=== PATIENT | male | born 2000 | race African-American/Black ===

== ENCOUNTER 2018-10-25 08:58 | Emergency (ER) | payer BC, MEDICAID ==
[~2018-10-25] VITALS: Ht 177.8 cm; Wt 61.2 kg
[2018-10-25 09:00] VITALS: BP 125/74
--- NOTE | 2018-10-25 09:00 | NUR ---
ED Nurse Note: Patient walked into ED c/o right eye pain, patient reports he was playing basketball on 10/23/18 and got hit on his right eye and patient still has pain and redness on the right eye. patient is alert awake x4 ambulatory steday gait, breathing unlabored and even.
--- NOTE | 2018-10-25 09:12 | NUR ---
ED Nurse Note: patient denies losing consciousness after getting hit by the basketball, patient reports the pain radiates only around his eyes.
[2018-10-25] MEDS ORDERED: Fluorescein Strips RIGHT EYE ONE (09:45)
[2018-10-25] MEDS ORDERED: Tetracaine 0.5% Opth 4ml Soln RIGHT EYE ONE (09:45)
[2018-10-25] MEDS ORDERED: Tetracaine 0.5% Opth 4ml Soln ONE (09:46)
[2018-10-25] MEDS ORDERED: Fluorescein Strips ONE (09:46)
--- NOTE | 2018-10-25 11:03 | Emergency Room Report ---
History of Present Illness General Chief Complaint: Eye Problems Source: Patient Present Illness HPI Patient states that 2 days ago he was playing basketball and someone poked him in the R. eye with her finger. He has had eye pain and irritation since that time. He denies blurry vision. He describes the pain as pain at the top of his eye. He has pain with extraocular movement. Allergies: Coded Allergies: No Known Allergies (Unverified , 10/25/18) Patient History Past Medical History: none Social History: Denies: smoking, alcohol use, drug use Reviewed Nursing Documentation: PMH: Agreed; PSxH: Agreed Nursing Documentation-PMH Past Medical History: No Stated History Review of Systems All Other Systems: negative except mentioned in HPI Physical Exam Vital Signs Date Time Temp Pulse Resp B/P (MAP) Pulse Ox O2 Delivery O2 Flow Rate FiO2 10/25/18 09:00 98.2 55 17 125/74 (91) 99 Room Air Sp02 EP Interpretation: reviewed, normal General Appearance: no apparent distress, alert, GCS 15, non-toxic Head: normocephalic, atraumatic Eyes: right eye other - R. eye with conjuctival injection +pain with inferior gaze but able to do all EOM.; bilateral eye PERRL ENT: hearing grossly normal, normal pharynx, no angioedema, normal voice Neck: full range of motion, supple/symm/no masses Respiratory: no respiratory distress, no retraction, no accessory muscle use, speaking full sentences Musculoskeletal: normal inspection, gait/station normal, normal range of motion Neurologic: alert, oriented x3, responsive, motor strength/tone normal, sensory intact, speech normal Psychiatric: judgement/insight normal, memory normal, mood/affect normal, no suicidal/homicidal ideation Medical Decision Making Diagnostic Impression: Primary Impression: Iritis CT/MRI/US Diagnostic Results CT/MRI/US Diagnostic Results : Imaging Test Ordered: CT orbit Impression Impression: No definite acute posttraumatic ocular or other abnormality. No findings to explain patient's symptoms. Note, however, that sensitivity is somewhat limited in the absence of IV contrast demonstration Right ethmoid and frontal sinus disease Last Vital Signs Date Time Temp Pulse Resp B/P (MAP) Pulse Ox O2 Delivery O2 Flow Rate FiO2 10/25/18 09:00 98.2 55 17 125/74 99 Room Air Scripts No Active Prescriptions or Reported Meds Referrals: NON PHYSICIAN (PCP) Colianno,Awa M. DO Oct 25, 2018 11:03
--- NOTE | 2018-10-25 11:07 | NUR ---
ED Nurse Note: patient went to CT in stable condition
--- NOTE | 2018-10-25 11:16 | NUR ---
ED Nurse Note: patient came back from CT in stable condition
--- NOTE | 2018-10-25 11:31 | Diagnostic Imaging Report ---
Indication: Ocular trauma, struck in the right high with a finger during basketball game, right eye pain and irritation since then, pain in the top of the right optic globe, pain with extraocular movements Technique: No IV contrast per referring physician request. Spiral acquisitions obtained through the orbits Multiplanar reconstructions were generated. Total dose length product 518.23 mGycm. CTDIvol(s) 28.19 mGy. Radiation dose was minimized using automated exposure control Comparison: none Findings: The optic globes are intact. No retroseptal orbital abnormality demonstrated. The extraocular muscles appear unremarkable. No definite periorbital soft tissue swelling. No acute fractures. There is opacification of the right anterior ethmoid air cells and right frontal sinuses. No worrisome sinus opacification. The visualized intracranial structures are unremarkable. The adenoids are prominent. The dentition is intact. Impression: No definite acute posttraumatic ocular or other abnormality. No findings to explain patient's symptoms. Note, however, that sensitivity is somewhat limited in the absence of IV contrast demonstration Right ethmoid and frontal sinus disease The CT scanner at [facility] is accredited by the [employer] and the scans are performed using protocols designed to limit radiation exposure to as low as reasonably achievable to attain images of sufficient resolution adequate for diagnostic evaluation.
--- NOTE | 2018-10-25 12:06 | NUR ---
ED Nurse Note: patient left ED to grab some food, Per DR. Sandra it's ok for the pateint to step outside and come back.
[2018-10-25 15:35] VITALS: BP 125/74
--- NOTE | 2018-10-25 15:35 | NUR ---
ER DISCHARGE NOTE: Patient is cleared to be discharged per RUDOLPH GAMING, patient is heading to Dr. Nolen's office upon discharge, address to his office given. pt is aox4, on room air, with stable vital signs. pt was given dc instructions, pt was able to verbalize understanding, pt id band removed without complications. pt is able to ambulate with steady gait. pt took all belongings.
== END 2018-10-25 15:35 | disposition home or self-care (01) ==
LOC: EMR 09:38
DX: H20.9 Unspecified iridocyclitis (principal)
CPT/HCPCS: 70480; 99284